=== PATIENT | female | born 1970 | race Two or more races ===

== ENCOUNTER 2024-05-23 10:49 | Outpatient (AMB) | payer OTHER, SELFPAY ==
[2024-05-23 11:13] VITALS: BP 130/78; PULSE 80; O2SAT 95; BMI 41.8
--- NOTE | 2024-05-23 11:13 | A.OFFVIS_ITS ---
Vital Signs 05/23/24 11:13 Height 5 ft 1 in Weight 221 lb 3 oz BMI 41.8 BP 130/78 Blood Pressure Location Lt brachial Pulse 80 Pulse Source Pulse Oximeter Pulse Oximetry (%) 95 Oxygen Delivery Method Room Air Intake Visit Reasons: Follow-up Intake Note: Patient presents for follow up on fibromyalgia. Allergies aspirin Allergy (Mild, Verified 05/23/24 11:18) rash, facial swelling HPI HPI Follow-up: Details: [place] Citizen-speaking patient. Patient's editor index helps interpret. She has been experiencing right hand pain. Last cortisone injection lasted at least 3 months. She wears her brace when she is doing chores in the house just is doing dishes or helping her COREMAKING SUPERVISOR with cooking. A week ago she started experiencing right knee pain with prolonged walking. Resting helps. Yesterday she hit her knee on a door after a fall leading to exacerbation of pain. Review of Systems Const All systems reviewed & are unremarkable except as noted in HPI and below Physical Exam Vital Signs: Last Vital Signs Pulse 80 05/23/24 11:13 BP 130/78 05/23/24 11:13 Pulse Ox 95 05/23/24 11:13 Oxygen Delivery Method Room Air 05/23/24 11:13 BMI result Body Mass Index 41.8 Const Other: General: Comfortable Skin: No lesions seen MSK: Tender to palpate 1st extensor compartment of right wrists. Positive Benitez test. She is unable to make a full fist. No synovitis present. She is tender MCPs and PIPs of right hand. Office Procedures AMB Joint Injection/Aspiration Joint Injection/Aspiration Details: Right 1st extensor compartment tendon sheath injection Prep: site was prepped using aseptic technique Injected: 20 mg of, Kenalog, with 0.5 mL of and 1% plain lidocaine Procedure: The patient tolerated the procedure well. Postprocedure protocol was discussed with patient. Coding Additional procedure code (CPT) needed (CPT code 77730) Office Meds lidocaine (PF) 10 mg/mL (1 %) injection solution Performing Provider: Stefano Mcknight MD Performing Location: [facility] Administered by: Stefano Mcknight MD on 05/23/24 12:24 Dose Route Admin Location Dispensed Lot Number Expiration Date [facility] Accounting Support Specialist 2.5 mg Infiltration 2 mL [id number] [facility] Kenalog 40 mg/mL suspension for injection Performing Provider: Stefano Mcknight MD Performing Location: [facility] Administered by: Stefano Mcknight MD on 05/23/24 12:24 Dose Route Admin Location Dispensed Lot Number Expiration Date [facility] Accounting Support Specialist 10 mg intra-articular 1 mL AP [id number] [employer] Assessment & Plan Assessment & Plan (1) De Quervain's tenosynovitis, right: Comment: Recurrent. With hand weakness. I will treat current pain with tendon sheath injection. Previously she has had tendon sheath injection to right wrist on 06/2023 and 11/19/2023. We discussed since this is a chronic recurrent problem that she can consider surgery. Patient declined surgery and prefers to continue treatment with cortisone injections. I recommended OT to help improve hand strength. Patient agrees with plan. Code(s): M65.4 - Radial styloid tenosynovitis [de Quervain] Category: Medical Plan: Patient received cortisone injection to right 1st extensor compartment of wrist this visit OT ordered to improve hand strength Wrist brace prescribed Return to clinic in 3 months (2) Knee pain, right: Comment: One-week history with activity. Code(s): M25.561 - Pain in right knee Category: Medical Qualifiers: Chronicity: acute Qualified Code(s): M25.561 - Pain in right knee Plan: X-ray ordered After x-ray results are back, I will add physical therapy Try diclofenac gel 1% applied to affected area every 4-6 hours as needed Return to clinic 3 months Orders: Orders XR knee RT 2V Today M17.0 - Bilateral primary osteoarthritis of knee OT Evaluation and Treatment Today M65.4 - Radial styloid tenosynovitis [de Quervain] AMB Joint Injection/Aspiration Today M65.4 - Radial styloid tenosynovitis [de Quervain] Medications: New diclofenac sodium 1% (Arthritis Pain (diclofenac)) apply to knee every 4-6 hours as needed. [place] Citizen label. 4 grams topical QID 100 grams 5RF arm brace (Wrist Brace) wear during the day with activities. Dx: de quervain's tenosynovitis 1 ea 0RF Coding Level of Care Code Est Pt Level 4 (44400) Complex EM visit Add On G2211 Diagnoses De Quervain's tenosynovitis, right M65.4 Acute pain of right knee M25.561 Chronicity: acute
--- OUTSIDE RECORDS SUMMARY | 2024-05-23 12:11 | XMS_ITS | Clinical Summary ---
Author Organization [facility] Address [address] [place] [address] Care Team Providers Care Mercerizing Range Controller Name Role Phone Unavailable Primary Care Provider Unavailabl e Social History Tobacco Use Types Packs/Day Years Used Date Smoking Tobacco: Never Assessed Sex and Gender Information Value Date Recorded Sex Assigned at Not on file Gender Identity Not on file Sexual Orientation Not on file Last Filed Vital Signs Vital Sign Reading Time Taken Comments Blood Pressure 110/70 12/06/2017 8:54 AM EDT Pulse 88 12/06/2017 8:54 AM EDT Temperature 36.4 ??C (97.5 ??F) 12/02/2017 1 0:18 AM EDT Respiratory Rate - - Oxygen Saturation - - Inhaled Oxygen Concentration - - Weight 91.5 kg (201 lb 11.5 oz) 12/06/2017 8:54 AM EDT Height 162 cm (5' 3.78 ) 12/06/2017 8:54 AM EDT Body Mass Index 34.86 12/06/2017 8:54 AM EDT Plan of Treatment Health Maintenance Due Date Last Done Comments Hepatitis C Virus Screening 1970 HIV Screening 1983 DTaP/Tdap/Td Vaccines (1 - Tdap) 1989 Hepatitis B Vaccines (1 of 3 - 19+ 3-dose series) 1989 Pneumococcal Vaccines 50+ (1 of 1 - PCV) 2020 Zoster (Shingles) Vaccine (1 of 2) 2020 COVID-19 Vaccine ( - 2023-2 5 season) 2024 Pneumococcal Vaccine: Pediat josep (0-5 Years) and At-Risk Patients (6 to 49 Years) Aged Out No longer eligible b ased on patient's age to complete this topic
--- OUTSIDE RECORDS SUMMARY | 2024-05-23 12:11 | XMS_ITS | Encounter Summary ---
Author Organization [facility] Address [address] [place] [address] Care Team Providers Care Heel Scorer Name Role Phone Mona Gordillo MD [facility] Encounter Details Date Type Department Care Team (Late st Contact Info) Description 05/05/2015 Scanned Document [facility] [address] [place] [address] External, Provider Social History Tobacco Use Types Packs/Day Years Used Date Smoking Tobacco: Never Assessed Comments Unknown Sex and Gender Information Value Date Recorded Sex Assigned at Not on file Legal Sex Female 8:39 AM EST Gender Identity Not on file Sexual Orientation Not on file documented as of this encounter Plan of Treatment Not on file documented as of this encounter Procedures Procedure Name Priority Date/Time Associated Diagnosis Comments LAB SCAN Routine 02/11/2015 documented in this encounter Results * Lab Scan (02/11/2015) Blood specimen (specimen) us Provider External LAB BLOOD ORDERABLES Final Res [facility] documented in this encounter Visit Diagnoses Not on filedocumented in this encounter Care Teams Heel Scorer Relationship Specialty Start Date End Date Mona Gordillo MD [address] [place] [phone] PCP - General Acute Care 10/02/17 documented as of this encounter
--- OUTSIDE RECORDS SUMMARY | 2024-05-23 12:11 | XMS_ITS | Encounter Summary ---
Author Organization [facility] Phone Care Team Providers Care Health Occupations Instructor Name Role Phone Mona Gordillo MD [facility] Encounter Details Date Type Department Care Team (Late st Contact Info) Description 12/14/2018 Scanned Document [facility] [address] [place] [id number] Jerry Dominguez MD [facility] [address] [address] Social History Tobacco Use Types Packs/Day Years Used Date Smoking Tobacco: Never Smokeless Tobacco: Never Alcohol Use Standard Drinks/Week Comments No 0 (1 standard drink = 0.6 oz pur e alcohol) Comments Unknown Sex and Gender Information Value Date Recorded Sex Assigned at Not on file Legal Sex Female 8:39 AM EST Gender Identity Not on file Sexual Orientation Not on file documented as of this encounter Plan of Treatment Not on file documented as of this encounter Visit Diagnoses Not on filedocumented in this encounter Care Teams Health Occupations Instructor Relationship Specialty Start Date End Date Mona Gordillo MD [address] [place] [address] PCP - General Acute Care 10/02/17 documented as of this encounter
--- OUTSIDE RECORDS SUMMARY | 2024-05-23 12:11 | XMS_ITS | Clinical Summary ---
Author Organization [address] Address [address] [place] [address] Phone Care Team Providers Care Biological Science Aide Name Role Phone Mona Gordillo MD Primary Care P [facility]ider Allergies Active Allergy Reactions Criticality Noted Date Comments Aspirin 03/12/2014 Medications metFORMIN (GLUCOPHAGE-XR) 500 MG 24 hr tablet Take 500 mg by mouth daily with dinner. Active lisinopril (PRINIVIL,ZESTRIL) 2.5 MG tablet Take 2.5 mg by mouth daily. Active metoprolol (TOPROL-XL) 25 MG 24 hr tablet Take 25 mg by mouth daily. Take with or immediately following a meal. Active atorvastatin (LIPITOR) 20 MG tablet Take 20 mg by mouth daily. Active risperiDONE (RISPERDAL) 0.5 MG tablet Take 0.5 mg by mouth 2 (two) times daily. Active trihexyphenidyl (ARTANE) 2 MG tablet Take 2 mg by mouth 3 (three) times daily with meals. Active ALBUTEROL INHL Inhale into the lungs. Active fluticasone-salmete rol (ADVAIR DISKUS) 500-50 mcg/dose diskus inhaler Inhale 1 puff into the lungs 2 (two) times daily. Active levothyroxine (SYNTHROID, LEVOTHROID) 75 MCG tablet Take 75 mcg by mouth daily. Active pantoprazole (PROTONIX) 40 MG tablet Take 1 tablet (40 mg total) by mouth daily. 30 tablet 3 08/25/19 17 Active water Liqd 150 mL with magnesium hydroxide 400 mg/5 mL Susp 400 mg, diphenhydrAMINE 12.5 mg/5 mL Elix 60 mg, nystatin 100,000 unit/mL Susp 500,000 Units TAKE 15ML BY MOUTH EVERY 8 HOURS NEEDED FOR PAIN 0 11/22/19 18 Active Active Problems Problem Noted Date Diagnosed Date Multiple thyroid nodules 08/06/2016 Asthma exacerbation 07/03/2015 Intellectual disability 07/01/2015 Overview (09/11/2018): Updated by IMO Load 2019 Regulatory 2 Diabetes 07/01/2015 CAP (community acquired pneumonia) 07/01/2015 Epilepsy 05/12/2015 HLD (hyperlipidemia) 05/12/2015 HTN (hypertension) 05/12/2015 Obesity 05/12/2015 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/12/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 Resolved Problems Problem Noted Date Diagnosed Date Resolved Date Seizures 07/01/2015 07/01/2015 SOB (shortness of breath) 05/12/2015 Family History Medical History Relation Name Comments Mental health Brother Transient ischemic attack Mother Mental health Sister Relation Name Status Comments Brother Alive Father unknown Alive Mother Alive Sister Alive Social History Tobacco Use Types Packs/Day Years [...] Sign Reading Time Taken Comments Blood Pressure 101/59 03/07/2018 11:14 AM EST Pulse 92 03/07/2018 11:14 AM EST Temperature 36.9 ??C (98.4 ??F) 03/07/2018 10:[address] Respiratory Rate 24 03/07/2018 11:14 AM EST Oxygen Saturation 96% 03/07/2018 11:14 AM EST Inhaled Oxygen Concentration - - Weight 91.2 kg (201 lb) 02/28/2018 1:56 PM EDT Height 160 cm (5' 3 ) 01/11/2018 10:21 AM EDT Body Mass Index 35.61 01/11/2018 10:21 AM EDT Plan of Treatment Health Maintenance Due Date Last Done Comments HIV screening 1983 Hepatitis C screening 1988 Tetanus adult (Td q 10,TDAP once) 1990 Cervical cancer screening 1991 Lipid disorder screening 2010 Colon cancer screening, Colonoscopy 2015 Diabetes screening 07/01/2018 07/02/2015, 0 07/01/2015, 03/12/2014, Additional history exists Breast cancer screening 12/09/2019 12/09/19 18, 04/05/2016, 03/31/2015, Additional history exists Shingles vaccine (Shingrix) (1 of 2 - Shingrix (RZV) 2 Dose Standard Series) 2020 Influenza vaccine 12/01/2023 Covid-19 vaccine series ( season) 2024 RSV Discussion (1 - 1-dose 75+ series) 2045 Meningococcal Vaccine Aged Out No lucy jovi eligible based on patient's age to complete this topic Pneumococcal Vaccine Aged Out No long er eligible based on patient's age to complete this topic Procedures Procedure Name Priority Date/Time Associated Diagnosis Comments MAMMO SCREENING Routine 12/08/2017 12:59 PM EDT Visit for screening mammogram BASIC METABOLIC PANEL Routine 07/02/2015 8:42 AM EST from Last 3 Months or Most Recently Relevant to Health Maintenance Results * Mammography Screening (12/08/2017 12:59 PM EDT) Anatomical Region Laterality Modality Breast Bilateral Mammography 12/08/2017 12:5 9 PM EDT Narrative 12/08/2017 1:50 PM EDT #[id number] - MAMMO SCREENING BILATERAL DIGITAL SCREENING MAMMOGRAM WITH CAD: 12/08/2017 Comparison is made to exams dated: ??03/31/2015 mammogram, 02/22/2014 mammogram, 01/02/2013 mammogram - [facility], 11/29/2011 mammogram - [facility], and 11/26/2010 mammogram - [facility]. ?? The tissue of both breasts is heterogeneously dense. This may lower the sensitivity of mammography. ?? Current study was also evaluated with a Computer Aided Detection (CAD) system. ?? No significant masses, calcifications, or other findings are seen in either breast. ?? There has been no significant interval change. IMPRESSION: BENIGN - BI-RADS 2 There is no mammographic evidence of malignancy. A 1 year screening bilateral mammogram is recommended. ?? Your patient's mammograms demonstrate that she has dense breast tissue, which could hide small abnormalities. ??In compliance with [place] Public Act No 09-41 the patient has been sent a letter which informs her that she has dense breast tissue and might benefit from annual supplementary screening tests such as breast ultrasound screening or a breast MRI examination depending on her individual risk factors. The patient may contact you if she has any questions or concerns. The patient was informed by letter of the results. ?? Dontae Cunningham M.D. ? pa/penrad:12/08/2017 13:50:53 ?? Car Rental Sales Assistant: Deanne Yap, [facility] letter sent: Normal Screening ?? Mammogram BI-RADS: 2 Benign Procedure Note Dontae Cunningham MD - 12/08/2017 #[id number] - MAMMO SCREENING BILATERAL DIGITAL SCREENING MAMMOGRAM WITH CAD: 12/08/2017 Comparison is made to exams dated: 03/31/2015 mammogram, 02/22/2014 mammogram, 01/02/2013 mammogram - [facility], 11/29/2011 mammogram - [facility], and 11/26/2010 mammogram - [facility]. The tissue of both breasts is heterogeneously dense. This may lower the sensitivity of mammography. Current study was also evaluated with a Computer Aided Detection (CAD) system. No significant masses, calcifications, or other findings are seen in either breast. There has been no significant interval change. IMPRESSION: BENIGN - BI-RADS 2 There is no mammographic evidence of malignancy. A 1 year screening bilateral mammogram is recommended. Your patient's mammograms demonstrate that she has dense breast tissue, which could hide small abnormalities. In compliance with [place] Public Act No 09-41 the patient has been sent a letter which informs her that she has dense breast tissue and might benefit from annual supplementary screening tests such as breast ultrasound screening or a breast MRI examination depending on her individual risk factors. The patient may contact you if she has any questions or concerns. The patient was informed by letter of the results. Dontae romeo/aditya:12/08/2017 13:50:53 Car Rental Sales Assistant: Deanne Yap, [facility] letter sent: Normal Screening Mammogram BI-RADS: 2 Benign us Bing Hidalgo MD IMG MAMMOGRA PHY ORDERABLES Final Result * (ABNORMAL) Basic Metabolic Panel (07/02/2015 8:42 AM EST) Glucose 103(H) 70 - 100 mg/dL [facility] BUN 6(L) 7 - 17 mg/dL [facility] Creatinine 0.56 0.52 - 1.04 mg/dL [facility] Sodium 143 137 - 145 mmol/L [facility] Potassium 4.5 3.5 - 5.1 mmol/L [facility] Chloride 101 98 - 107 mmol/L [facility] CO2 27 22 - 30 mmol/L [facility] Anion Gap 16 7 - 16 mmol/L [facility] Calcium 8.4 8.4 - 10.2 mg/dL [facility] eGFR >60 [facility] Comment: Interpretation Stage 1 ?? 90 ml/min or greater ? Healthy kidneys or kidney damage with normal or high eGFR Stage 2 ?? 60-89 ml/min ? Kidney damage and mild decrease in eGFR Stage 3 ?? 30-59 ml/min ? Moderate decrease in eGFR Stage 4 ?? 15-29 ml/min ? Severe decrease in eGFR Stage 5 ?<15 ml/min ?Kidney failure The GFR is calculated to include the patient's race and gender as entered in Patient Demographics. Blood specimen (specimen) 07/02/2015 8:42 AM EST us Cristina Wallis APRN LAB BLOOD ORDERABLE S Edited Result - Final [facility] [address] [place] [address] from Last 3 Months or Most Recently Relevant to Health Maintenance Insurance [place] [facility] [place] [facility] [place] [facility] [place] MEDICA[place] BCBS MCR MGD Advance Directives * Full Interventions (Latest Code Status on File) Date Activated Date Inactivated Comments 07/01/2015 8:43 PM 07/04/2015 4:35 PM Care Teams Biological Science Aide Relationship Specialty Start Date End Date Mona Gordillo MD [address] [place] [address] PCP - General Acute Care 10/02/17
--- OUTSIDE RECORDS SUMMARY | 2024-05-23 12:11 | XMS_ITS | Encounter Summary ---
Author Organization [facility] Address [address] [place] [address] Care Team Providers Care Curator Zoological Museum Name Role Phone Mona Gordillo MD Primary Care P [facility] Encounter Details Date Type Department Care Team (Latest Contact Info) Description 02/08/2013 Transcribed Orders [facility] - [address] [address] Jessy Rice MD [address] [place] [id number] DM (diabetes mellitus) (HC Code) (Primary Dx); HTN (hypertension) Social History Tobacco Use Types Packs/Day Years Used Date Smoking Tobacco: Never Assessed Comments Unknown Sex and Gender Information Value Date Recorded Sex Assigned at Not on file Legal Sex Female 8:39 AM EST Gender Identity Not on file Sexual Orientation Not on file documented as of this encounter Plan of Treatment Not on file documented as of this encounter Visit Diagnoses Diagnosis DM (diabetes mellitus) (HC Code)- Primary Type II or unspecified type diabetes mellitus without mention of complication, not stated as uncontrolled HTN (hypertension) Unspecified essential hypertension documented in this encounter Care Teams Curator Zoological Museum Relationship Specialty Start Date End Date Mona Gordillo MD [address] [place] [phone] PCP - General Acute Care 10/02/17 documented as of this encounter
== END 2024-05-23 11:55 | disposition home or self-care (01) ==
PROVIDERS: Visit Provider Internal Medicine Rheumatology
DX: M65.4 Radial styloid tenosynovitis [de Quervain] (principal); M25.561 Pain in right knee
CPT/HCPCS: 99214; G2211

== ENCOUNTER → 2024-05-23 10:49 | Outpatient (BNVA) | payer OTHER, SELFPAY | PROVIDERS: Visit Provider Internal Medicine Rheumatology | DX: M65.4 Radial styloid tenosynovitis [de Quervain] (principal); M79.7 Fibromyalgia; M17.0 Bilateral primary osteoarthritis of knee | CPT/HCPCS: 20550; 99212; J2003; J3300 ==

== ENCOUNTER 2024-06-06 14:06 | Outpatient (RCR) | payer OTHER, SELFPAY | END 2024-07-18 15:10 | disposition home or self-care (01) | LOC: HO.OT 14:06 | PROVIDERS: Visit Provider Internal Medicine Rheumatology | DX: M65.4 Radial styloid tenosynovitis [de Quervain] (principal) | CPT/HCPCS: 97110; 97166 ==

== ENCOUNTER 2024-11-01 12:20 | Outpatient (AMB) | payer OTHER, SELFPAY ==
--- NOTE | 2024-11-01 12:21 | MHC.OFFVIS ---
Vital Signs 11/01/24 12:22 Height 5 ft 1 in Weight 208 lb 1.862 oz BMI 39.3 BP 122/70 Blood Pressure Location Lt brachial Position Sitting Pulse 108 H Pulse Source Pulse Oximeter Pulse Oximetry (%) 96 Oxygen Delivery Method Room Air Intake Visit Reasons: follow up Intake Note: Patient presents for follow up on fibromyalgia. Allergies aspirin Allergy (Mild, Verified 11/01/24 12:22) rash, facial swelling HPI HPI follow up: Details: Patient is accompanied by her mother's DIGITAL PHOTOGRAPHIC PRINTER who interprets for patient. Slovak-speaking patient. She continues to have pain in her right wrists. She did not go to occupational therapy. She reports that she had a therapist at home that did exercises with her. She can not remember when his therapist came to her home. She wears his wrist brace at night. [facility] Medical History (Updated 11/01/24 @ 13:02 by Stefano Mcknight MD) Ectopic gastric tissue Physical Exam Vital Signs: Last Vital Signs Pulse 108 H 11/01/24 12:22 BP 122/70 11/01/24 12:22 Pulse Ox 96 11/01/24 12:22 Oxygen Delivery Method Room Air 11/01/24 12:22 BMI result Body Mass Index 39.3 Const Other: General: Comfortable Skin: She has hyperpigmented circular lesion at prior cortisone injection site localized to 1st extensor compartment of right wrist MSK: Tender to palpate 1st extensor compartment of right wrist. Positive Benitez test. She is unable to make a full fist. No synovitis present. Assessment & Plan Assessment & Plan (1) De Quervain's tenosynovitis, right: Comment: Recurrent. With hand weakness. She has experienced hyperpigmentation at the cortisone injection site from last visit, which is a rare reaction. I would avoid further cortisone injections. We discussed conservative management. Code(s): M65.4 - Radial styloid tenosynovitis [de Quervain] Category: Medical Plan: OT ordered to improve hand strength Wrist brace prescribed Return to clinic in 3 months Medications: Refilled arm brace (Wrist Brace) wear during the day with activities. Dx: de quervain's tenosynovitis 1 ea 0RF Coding Level of Care Code Est Pt Level 3 (59011) Complex EM visit Add On G2211 Diagnoses De Quervain's tenosynovitis, right M65.4
[2024-11-01 12:22] VITALS: BP 122/70; PULSE 108; O2SAT 96; BMI 39.3
--- OUTSIDE RECORDS SUMMARY | 2024-11-01 12:39 | XMS_ITS | Data Portability ---
Author Organization [facility] Address [address] [place] [address] Assessment Encounter Date Assessment Date Assessment LastModified by Organization Details LastModified Time 08/06/2020 08/06/2020 draw cbc,cmp,HA1C, lipid panel tomorrow togbu Not available 08/07/2020 10:24:50 Plan of Treatment Reminders Order Date Submit Date Provider Last Modified By Organization Details Last Modified Time Details Appointments None record ed. Lab None record ed. Referral None record ed. Procedures None record ed. Surgeries None record ed. Imaging None record ed. Medication Orders None record ed. Patient TargetsNo targets recorded. Patient InstructionsNo instructions recorded. Reason for Referral None Reported. Problems Name Problem SNOMED Code Status Onset Date Resolution Date Notes Provider Name and Address Organization Details Recorded Time Acute hypoxemic respiratory failure 983604377 Active 2020 Trish mckeon [facility] 09:35:00 History of SARS-CoV-2 2401373855255 Active 2020 Trish mckeon [facility] 09:35:19 Pneumonia caused by SARS-CoV-2 8829810742854 Active 2020 Trish mckeon [facility] 09:35:36 Type 2 diabetes mellitus without complicatio n 124514591 Active 2020 Trish mckeon [facility] 09:35:53 Asthmatic bronchitis 222840796 Active 2020 Trish mckeon [facility] 09:36:20 Morbid obesity 414147846 Active 2020 Trish Doty [facility] 09:36:54 Hyperlipide jocelyn 78733125 Active 2020 Trishsolis Doty [facility] 09:37:20 Depressive disorder 82867949 Active 2020 Trish Burke [facility] 09:37:35 Essential hypertensio n 42753118 Active 2020 Trishsolis Doty [facility] 09:37:49 Gastroesoph ageal reflux disease without esophagitis 556481236 Active 2020 Trish Burke [facility] 09:38:04 Hypokalemia 58834144 Active 2020 Trish Burke [facility] 09:38:23 Leukocytosi s 743828731 Active 2020 Trishsolis Doty [facility] 09:39:02 Childhood growth AND/OR development alteration 078842755 Active 2020 Trish Burke [facility] 09:39:43 Recurrent falls 633498471 Active 2020 Trish Burke [facility] 09:40:09 Psychotic disorder 95194224 Active 2020 Trish Burke [facility] 09:40:31 COVID-19 537503117 Active 2020 Juaquin Toussaint [facility] 1 10:25:01 Problem Notes None recorded. Medical Equipment None Reported. Allergies No known drug allergies Medications Name Sig Start Date Stop Date Status Note LastModified by Organization Details LastModified Time losartan 50 mg tablet active Not Available Not Available Not Available metformin 500 mg tablet active Not Available Not Available Not Available albuterol sulfate 2.5 mg/3 mL (0.083 %) solution for nebulization active Not Available Not Available Not Available atorvastatin 10 mg tablet active Not Available Not Available Not Available amlodipine 5 mg tablet active Not Available Not Available Not Available risperidone 2 mg tablet active Not Available Not Available Not Available losartan 25 mg tablet active Not Available Not Available Not Available benztropine 1 mg tablet active Not Available Not Available Not Available hydrochlorothiazide 12.5 mg capsule active Not Available Not Availa ble Not Available omeprazole 20 mg capsule,delayed release active Not Available Not Available Not Available montelukast 10 mg tablet active Not Available Not Available Not Available albuterol sulfate HFA 90 mcg/actuation aerosol inhaler active Not Available Not Availa ble Not Available escitalopram 10 mg tablet active Not Available Not Available Not Available memantine 10 mg tablet active Not Available Not Available Not Available Vitals Date Recorded Body height Body mass index (BMI) Body weight Oxygen saturation Oxygen saturation in Arterial blood by Pulse oximetry Heart rate Body temperature Respiratory rate Systolic And Diastolic Provider Name and Address Organization Details Last Updated DateTime 1 180.34 cm 27.6 kg/m2 35368.2 9 g 98 % 98 % 70 /min 98.9 [degF] 18 /min 126/79 mm[Hg] [facility] 1 19:36:06 Date Recorded Body height Oxygen saturation Oxygen saturation in Arterial blood by Pulse oximetry Heart rate Body temperature Respiratory rate Systolic And Diastolic Provider Name and Address Organization Details Last Updated DateTime 1 180.34 cm 96 % 96 % 65 /min 98.9 [degF] 20 /min 122/68 mm[Hg] [facility] 1 15:50:07 Social History None recorded. Functional Status None recorded. Mental Status None recorded. Family History Nothing Reported Notes:reviwed but non contri butory Medical History Condition Response Diabetes Y Anxiety Disorder Y Acid Reflux (GERD) Y Anemia Y Asthma Y Gynecological HistoryNo gynecological history recorded. Obstetrics History GPAL:G 0 P 0 0 0 0 Past Encounters Encounter ID Performer Location Encounter Start Date Encounter Closed Date Diagnosis/Indication Diagnosis SNOMED-CT Code Diagnosis ICD10 Code Diagnosis Note [id number] JUAQUIN TOUSSAINT NP [address] [address] 08/06/2020 19:35:02 08/07/2020 10:28:05 COVID-19 807405464 U07.1 start isolation for 14 days Essential hypertension 04673808 I10 cont losartan Gastroesop hageal reflux disease without esophagitis 978963749 K21.9 cont omeprazole Type 2 amber betes mellitus without complication 506021718 E11.9 cont metformin Hyperlipidemia 32325322 E78.[place] [id number] JUAQUIN TOUSSAINT NP [facility] [address] [place] [address] 08/11/2020 15:48:33 08/11/2020 21:39:16 COVID-19 138646395 U07.1 start isolation for 14 days Asthmatic bronchitis 405 031348 J45.909 Essential hypertension 38100876 I10 cont losartan Gastroesop hageal reflux disease without esophagitis 988735794 K21.9 cont omeprazole Hyperlipidemia 67203953 E78.5 cont atorvastat in Psychotic disorder 07487 001 F29 Type 2 amber betes mellitus without complication 288715516 E11.9 cont metformin Health Concerns Section Related Observation LastModified by Organization Detai ls LastModified Time None Recorded Concern Status LastModified by Organization Details LastModified Time None Recorded Advance Directives Directive None Recorded Payers Insurance Date Sequence Insurance Name Policy Number Policy Dawson Covered Member ID Dawson Member ID Guarantor Name 08/07/2020 1 MEDICARE A-GOPI Bacon Agustín [id number] Bal Lockhartselvin Randolph 08/07/2020 2 MEDICAID-[place] Bacon Agustín [id number] Bal Bacon Agustín Notes Date Note Type Note Provider Name and Address Organization Details Recorded Time 08/06/2020 text/html 50 yr old female with history of developmental delay, HTN,T2DM, Unknown kidney disease s/p nephrectomy; and asthma here for shelter placement. Of note patient was undergoing rehabilitation at the [facility] until 08/04/2020 when the family decided to transfer her here for continuity of care. Code: FULL Juaquin mckeon [place] - [facility] 08/07/2020 10:28:03 08/11/2020 text/html 50 yr old female with history of developmental delay, HTN,T2DM, Unknown kidney disease s/p nephrectomy; and asthma here for shelter placement. Nursing requested a follow up visit for shortness of breath said to better with nebs. ROS:denied headache/chest pain/shortness of breath/n/v Code: FULL [facility] 08/11/2020 21:39:15 OBGyn Episode No OBEpisode recorded.
--- OUTSIDE RECORDS SUMMARY | 2024-11-01 12:39 | XMS_ITS | Clinical Summary ---
Author Organization [facility] Address [address] [place] [address] Care Team Providers Care Environmental Tech Name Role Phone Unavailable Primary Care Provider Unavailabl e Social History Tobacco Use Types Packs/Day Years Used Date Smoking Tobacco: Never Assessed Comments Unknown Sex and Gender Information Value Date Recorded Sex Assigned at Not on file Legal Sex Female 1:59 PM EDT Gender Identity Not on file Sexual Orientation Not on file Last Filed Vital Signs Vital Sign Reading Time Taken Comments Blood Pressure 110/70 12/06/2017 8:54 AM EDT Pulse 88 12/06/2017 8:54 AM EDT Temperature 36.4 C (97.5 F) 12/02/2017 10:18 AM EDT Respiratory Rate - - Oxygen [...] (1 of 3 - 19+ 3-dose series) 06/02 Pneumococcal Vaccines 50+ (1 of 1 - PCV) 2020 Zoster (Shingles) Vaccine (1 of 2) 2020 COVID-19 Vaccine (1 - 2023- season) 2024
--- OUTSIDE RECORDS SUMMARY | 2024-11-01 12:39 | XMS_ITS | Clinical Summary ---
Author Organization [address] [facility] Address [address] [place] [address] Phone Care Team Providers Care Director Process Name Role Phone Payal Barbosa MD Primary Care Provider [phone] Allergies No known active allergies Medications ammonium lactate (AMLACTIN) 12 % cream Apply topically if needed for dry skin. 770 g 2 5 08/29/19 26 Active Encounters Date Type Department Care Team Description 08/28/2024 10:45 AM EDT Office Visit Orthopedic Surgery [facility] [address] [facility] [address] [place] [id number] Federico Sequeira, АННА Controlled type 2 diabetes with neuropathy (CMS/HCC V24, CMS/HCC V28) (Primary Dx); Hammertoes of both feet; PVD (peripheral vascular disease) (CMS/HCC V24); Dermatophytosis, nail from Last 3 Months Medical History Medical History Date Comments Asthma Diabetes mellitus (CMS/HCC V24, CMS/HCC V28) Hypertension Depression Fibromyalgia Migraines Social History Tobacco Use Types Packs/Day Years Used Date Smoking Tobacco: Never Smokeless Tobacco: Never Tobacco Cessation:Counseling Given: Not Answered Comments Unknown Sex and Gender Information Value Date Recorded Sex Assigned at Not on file Legal Sex Female 2:39 PM EST Gender Identity Not on file Sexual Orientation Not on file Obstetrics History Last Filed Vital Signs Vital Sign Reading Time Taken Comments Blood Pressure 138/62 03/21/2024 2:14 PM EST Pulse 84 03/21/2024 2:14 PM EST Temperature - - Respiratory Rate 18 03/21/2024 2:14 PM EST Oxygen Saturation 96% 03/21/2024 2:14 PM EST Inhaled Oxygen Concentration - - Weight 98.9 kg (218 lb) 08/28/2024 10:46 AM EDT Height 160 cm (5' 2.99 ) 08/28/2024 10:46 AM EDT Body Mass Index 38.63 08/28/2024 10:46 AM EDT Plan of Treatment Health Maintenance Due Date Last Done Comments Breast Cancer Screening 1970 Diabetes: Annual Foot Exam 1980 Diabetes: Annual Retina Eye Exam 1980 Hepatitis A Vaccines (1 of 2 - Risk 2-dose series) 1989 Cervical Cancer Screening: Pap Smear 1991 Cholesterol Screening (Lipid Panel) 03/31/2022 Colorectal Cancer Screening: Colonoscopy 03/31/2022 Depression Screening 03/31/2022 HIV Screening 03/31/2022 Hepatitis C Screening 03/31/2022 Medicare Annual Wellness Visit 03/31/2022 Social Influencers of Health Screening 03/31/2022 Hepatitis B Vaccines (3 of 3 - 19+ 3-dose series) 04/06/2023 11/03/2022, 10/05/2022 COVID-19 Vaccine (3 - 2023- season) 2024 11/14/2020, 10/24/2020 Diabetes: Annual Urine Albumin-Creatinine Ratio (uACR) 03/21/2024 Diabetes: Blood Sugar Control Test (HGBA1C) 03/21/2024 Diabetes: Annual GFR (Glomerular Filtration Rate) 03/21/2025 03/21/2024 Hypertension/CHF/CAD Annual BMP Blood Test 03/21/2025 03/21/2024 DTaP,Tdap,and Td Vaccines (2 - Td or Tdap) 09/22/2032 09/22/2022 Pneumococcal Vaccine: 50+ Years Completed 09/22/2022 Pneumococcal Vaccine: Pediatrics (0 to 5 Years) and At-Risk Patients (6 to 64 Years) Completed 09/22/2022 Zoster Vaccines Completed 09/23/2022, 07/07/2022 MMR Vaccines Aged Out 10/05/2022 No longer eligi ble based on patient's age to complete this topic Influenza Vaccine Completed 02/22/2024, , 02/06/2020, Additional history exists HIB Vaccines Aged Out No longer eligi ble based on patient's age to complete this topic HPV Vaccines Aged Out No longer eligi ble based on patient's age to complete this topic IPV Vaccines Aged Out No longer eligi ble based on patient's age to complete this topic Meningococcal ACWY Vaccine Aged Out N o longer eligible based on patient's age to complete this topic Meningococcal B Vaccine Aged Out No l onger eligible based on patient's age to complete this topic RSV Immunization Patients Under 20 months Aged Out No longer eligible based on patient's age to complete this topic Varicella Vaccines Aged Out No longer eligible based on patient's age to complete this topic Procedures Procedure Name Priority Date/Time Associated Diagnosis Comments COMPREHENSIVE METABOLIC PANEL STAT 03/21/2024 2:27 PM EST from Last 3 Months or Most Recently Relevant to Health Maintenance Results * (ABNORMAL) Comprehensive metabolic panel (03/21/2024 2:27 PM EST) Sodium 140 133 - 145 mmol/L LAB CHEMISTRY METHOD 03/21/2024 3:00 PM [facility] Potassium 3.9 3.5 - 5.5 mmol/L LAB CHEMISTRY METHOD 03/21/2024 3:00 PM [facility] Chloride 106 96 - 110 mmol/L LAB CHEMISTRY METHOD 03/21/2024 3:00 PM [facility] CO2 27 21 - 32 mmol/L LAB CHEMISTRY METHOD 03/21/2024 3:00 PM [facility] Anion Gap 7 3 - 11 LAB CHEMISTRY METHOD 03/21/2024 3:00 PM [facility] Glucose 105(H) 70 - 100 mg/dL LAB CHEMISTRY METHOD 03/21/2024 3:00 PM [facility] BUN 11 5 - 25 mg/dL LAB CHEMISTRY METHOD 03/21/2024 3:00 PM [facility] Creatinine 0.61 0.50 - 1.10 mg/dL LAB CHEMISTRY METHOD 03/21/2024 3:00 PM [facility] eGFR 107 >=60 mL/min/1. 73m2 LAB CHEMISTRY METHOD 03/21/2024 3:00 PM [facility] Comment:Calculation based on the Chronic Kidney Disease Epidemiology Collaboration (CKD-EPI) equation refit without adjustment for race. BUN/Creatinine Ratio 18.0 LAB CHEMISTRY METHOD 03/21/2024 3:00 PM [facility] Calcium 9.7 8.5 - 10.5 mg/dL LAB CHEMISTRY METHOD 03/21/2024 3:00 PM [facility] AST (SGOT) 33 10 - 42 unit/L LAB CHEMISTRY METHOD 03/21/2024 3:00 PM [facility] ALT (SGPT) 39 10 - 60 unit/L LAB CHEMISTRY METHOD 03/21/2024 3:00 PM [facility] Alkaline Phosphatase 129(H) 42 - 121 unit/L LAB CHEMISTRY METHOD 03/21/2024 3:00 PM [facility] Total Protein 6.7 6.0 - 8.0 g/dL LAB CHEMISTRY METHOD 03/21/2024 3:00 PM [facility] Albumin 3.7 3.2 - 5.0 g/dL LAB CHEMISTRY METHOD 03/21/2024 3:00 PM [facility] Total Bilirubin 0.4 0.0 - 1.4 mg/dL LAB CHEMISTRY METHOD 03/21/2024 3:00 PM [facility] Blood Venous blood specimen / Unknown Venipuncture / Unknown 03/21/2024 2:27 PM EST 03/21/2024 2:31 PM EST us Kwame Barboza MD LAB BLOOD ORDERABLES Final Resu lt [facility] [address] [place] [address], [place] [phone] from Last 3 Months or Most Recently Relevant to Health Maintenance Insurance [employer] MED[employer] Member Subscriber Plan / Payer (Ef fective 2020-Present) Name:BAL PERDOMO Relation to Subscriber:Self Name:Bal Bacon Payer ID:[id number] Group ID:[id number] Type:Not on file Address: [address] [place] [address] Advance Directives Documents on File Type Date Recorded Patient Advertising Account Representative Expl anation Health Care Decision (hx) 06/21/2020 AD SAMUELS DIRECTIVE Health Care Decision (hx) 06/21/2020 AD SAMUELS DIRECTIVE Health Care Decision (hx) 06/21/2020 AD SAMUELS DIRECTIVE Health Care Decision (hx) 06/19/2020 AD SAMUELS DIRECTIVE Health Care Decision (hx) 06/19/2020 AD SAMUELS DIRECTIVE Health Care Decision (hx) 06/19/2020 AD SAMUELS DIRECTIVE Care Teams Director Process Relationship Specialty Start Date End Date Payal Barbosa MD [address] [place] [address] PCP - General 03/20/24
== END 2024-11-01 12:55 | disposition home or self-care (01) ==
LOC: HO.RHES 12:20
PROVIDERS: Visit Provider Internal Medicine Rheumatology
DX: M65.4 Radial styloid tenosynovitis [de Quervain] (principal)
CPT/HCPCS: 99213; G2211

== ENCOUNTER → 2024-11-01 12:20 | Outpatient (BNVA) | payer OTHER, SELFPAY | PROVIDERS: Visit Provider Internal Medicine Rheumatology | DX: M65.4 Radial styloid tenosynovitis [de Quervain] (principal) | CPT/HCPCS: 99212 ==